=== PATIENT | female | born 1995 | race Caucasian/White ===

== ENCOUNTER 2021-10-28 01:25 | Inpatient (IN) | payer BC ==
[2021-10-28] MEDS ORDERED: Nalbuphine HCl 10 MG/ 1ML Amp IVPUSH PRN (02:21)
[2021-10-28] MEDS ORDERED: Lidocaine 1% 50 ML MDV INJECT ONE (02:21)
[2021-10-28] MEDS ORDERED: Sodium Chloride 0.9% 10 ML Syringe FLUSH PRN (02:21)
[2021-10-28] MEDS ORDERED: Ondansetron 4 MG/2 ML SDV IVPUSH PRN (02:21)
[2021-10-28] MEDS ORDERED: Oxytocin/Lactated Ringers 10 UNIT/1,000 ML BAG IV SCH (02:30)
[2021-10-28] MEDS: Lactated Ringers 1,000 ML IV SCH ×3 (02:41→04:54)
[2021-10-28] MEDS ORDERED: ePHEDrine 50 MG/ML SDV IVPUSH PRN (03:18)
[2021-10-28] MEDS ORDERED: diphenhydrAMINE 50 MG/ML SDV IVPUSH PRN (03:18)
[2021-10-28] MEDS ORDERED: fentaNYL 100 MCG/2 ML SDV EPIDUR PRN (03:18)
[2021-10-28] MEDS ORDERED: Bupivacaine/fentaNYL/NS 100 ML Bag EPIDUR PRN (03:18)
[2021-10-28] MEDS ORDERED: Ibuprofen 600 MG Tab PO PRN (08:24)
[2021-10-28] MEDS ORDERED: Sodium Chloride 0.9% 10 ML Syringe FLUSH SCH (09:00)
[2021-10-28] MEDS ORDERED: Docusate Sodium 100 MG Cap PO PRN (09:30)
[2021-10-28] MEDS ORDERED: Benzocaine/Menthol 20%-0.5% Spray 78 GM Cannister TOP PRN (09:30)
[2021-10-28] MEDS ORDERED: Acetaminophen 325 MG Tab PO PRN (09:30)
[2021-10-28] MEDS ORDERED: Witch Hazel Medicated Pads 40/Jar TOP PRN (09:30)
[2021-10-28] MEDS: Ibuprofen 600 MG Tab PO PRN ×2 (13:30→20:24)
[2021-10-28] MEDS: Prenatal Multivitamin with Calcium/Folic Acid/Iron Tab PO SCH (15:49)
[2021-10-28] MEDS ORDERED: Bupivacaine 0.25% 10 ML SDV ONE (18:00)
[2021-10-29] MEDS: Prenatal Multivitamin with Calcium/Folic Acid/Iron Tab PO SCH (08:28)
[2021-10-29] MEDS: Ibuprofen 600 MG Tab PO PRN (08:28)
== END 2021-10-29 10:46 | disposition home or self-care (01) | DRG 560 ==
LOC: JD.OBCHECK 01:25 → JD.OB 01:30 → JD.OBCHECK 02:22 → JD.OB 02:23 → OBSVTOIN 07:13 → JD.MS 07:14 → JD.OB 10:57
PROVIDERS: ADMIT Obstetrics & Gynecology; ATTEND Obstetrics & Gynecology
PROC: 10E0XZZ Delivery of Products of Conception, External Approach (ICD-10-PCS; principal; 2021-10-28)
PROC: 10907ZC Drainage of Amniotic Fluid, Therapeutic from Products of Conception, Via Natural or Artificial Opening (ICD-10-PCS; 2021-10-28)
PROC: 3E0R3BZ Introduction of Anesthetic Agent into Spinal Canal, Percutaneous Approach (ICD-10-PCS; 2021-10-28)
PROC: 00HU33Z Insertion of Infusion Device into Spinal Canal, Percutaneous Approach (ICD-10-PCS; 2021-10-28)
PROC: 0HQ9XZZ Repair Perineum Skin, External Approach (ICD-10-PCS; 2021-10-28)
DX: O70.0 First degree perineal laceration during delivery (principal); Z3A.38 38 weeks gestation of pregnancy; Z37.0 Single live birth
CPT/HCPCS: 01967; 36415; 51701; 59025; 59409; 85025; 86592; A9270-GY; J2300; J2590; J3010; J3490; J7120